=== PATIENT | female | born 1950 | race African-American/Black ===

== ENCOUNTER 2023-07-08 13:46 | Outpatient (AMB) | payer MEDICARE, SELFPAY ==
[2023-07-08 13:53] VITALS: BP 130/80; PULSE 68; O2SAT 97; BMI 34.6
--- NOTE | 2023-07-08 13:53 | A.OFFVIS_ITS ---
Intake Vital Signs 07/08/23 13:53 Height 5 ft 4 in Weight 201 lb 11.567 oz BMI 34.6 BP 130/80 Blood Pressure Location Lt brachial Position Sitting Pulse 68 Pulse Source Pulse Oximeter Pulse Oximetry (%) 97 Oxygen Delivery Method Room Air Intake Visit Reasons: Cough Intake Note: pt is here as a new patient for a erin cough, little better past few weeks, but it is still there and is dry. 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 HER CHIEF COMPLAINT IS COUGH SINCE JANUARY 2023. SHE DOES NOT KNOW EXACTLY WHAT MAY HAVE STARTED HER COUGH. SHE DENIES HAVING HAD ANY ACUTE RESPIRATORY INFECTION BEFORE THE ONSET OF HER COUGH. SHE DOES HAVE SYMPTOMS OF GERD ,OFF AND ON AND IS BEING TREATED WITH SOME PILL ONCE A DAY ( OF WHICH SHE DID NOT KNOW THE NAME ) SHE STILL HAS GERD SYMPTOMS ONCE IN A WHILE. SHE HAS MILD ALLERGIC RHINITIS, AROUND THE YEAR BUT FLARES UP MOSTLY IN SPRING SEASON. SHE USES FLONASE NASAL SPRAY NEEDED, AND OTC ANTIHISTAMINIC AGENTS ONLY P.R.N.. THE ONLY CHANGE IN THE HOUSE ENVIRONMENT HAS BEEN A NEW FURNACE INSTALLED IN THE LAST FALL ( OIL BASED) SHE DOES HAVE HIS CENTRAL HUMIDIFIER BUT DID NOT USE DURING THE WINTER. SHE HAS A DEHUMIDIFIER , BUT USES DURING SUMMER. SHE DOES NOT HAVE PAST HISTORY OF BRONCHIAL ASTHMA OR COPD. SHE HAS NOT BEEN A SMOKER HOWEVER HER AND HER CHILDREN HAVE BEEN SMOKING . SHE WAS PRESCRIBED SYMBICORT INHALER BY HER PCP, WHICH SHE USED WITHOUT ANY BENEFIT. NOW FOR THE PAST FEW WEEKS HER COUGH IS SUBSIDING SLOWLY, BUT SHE STILL WAKES SOMETIMES DURING THE NIGHT WITH COUGH. SHE TELLS ME THAT SHE HAD A CHEST X-RAY THROUGH [employer] [facility] , AND WAS TOLD THAT THE CHEST X-RAY WAS NORMAL [facility] Medical History (Updated 07/08/23 @ 15:35 by Rayshawn Gregorio MD) Cough Social History Patient Tobacco Use Status: Never used Tobacco Review of Systems Const All systems reviewed & are unremarkable except as noted in HPI and below Eyes Reports no additional complaints ENT Reports nasal congestion (MILD INTERMITTENT) Card Denies irregular heart rhythm and Denies leg edema Resp Reports as per HPI GI Reports heartburn (INTERMITTENT) Reports no additional complaints Musc Reports no additional complaints Skin/Breast Reports system reviewed and no additional complaints, except as documented Neuro Reports no additional complaints Psych Reports no additional complaints Endo Reports no additional complaints Geovani/Lymph Reports no additional complaints Physical Exam Vital Signs: Last Vital Signs Pulse 68 07/08/23 13:53 BP 130/80 07/08/23 13:53 Pulse Ox 97 07/08/23 13:53 Oxygen Delivery Method Room Air 07/08/23 13:53 BMI result Body Mass Index 34.6 Const General: healthy appearing, comfortable, no acute distress, alert and awake Orientation/consciousness: patient oriented x3 HEENT Head: Yes normal to inspection General nose exam: No nasal polyps present and No nasal discharge present Face and sinus: Yes sinuses nontender Mouth: oropharynx normal Throat: Yes posterior oropharynx normal Eyes General: appearance normal, both eyes and all related structures Neck Neck: Yes normal visual inspection, Yes no lymphadenopathy, Yes trachea midline and Yes no JVD Thyroid: Thyroid normal Chest Chest palpation & inspection: normal inspection of the chest, normal palpation of entire chest wall and no tenderness Resp Effort & Inspection: normal respiratory effort Auscultation: clear to auscultation bilaterally, no crackles, no rhonchi and no wheezes Cardio Palpation: normal PMI Rate: regular rate Rhythm: regular rhythm Heart sounds: no gallops and no murmurs Peripheral pulses: Peripheral pulses 2+ throughout GI Palpation (GI): Soft to palpation, nontender, No hepatosplenomegaly present and no masses Auscultation: normal bowel sounds Back/Spine/Pelvis Thoracic/Lumbar Spine: thoracic and lumbar spine normal to inspection Skin General skin exam: no rashes or lesions noted Neuro General: patient oriented x3 and no focal motor deficits Cranial nerves: Yes CN's II-XII intact bilaterally Extrem General: Yes normal to inspection, Yes no clubbing, cyanosis or edema and Yes no calf tenderness Psych Appearance: grossly normal and well kempt Speech and movement: Normal speech and movement present Assessment & Plan Assessment & Plan (1) Cough: Comment: COUGH SINCE JANUARY 2023, ETIOLOGY NOT DETERMINED. MOST LIKELY DUE TO COMBINATION OF A FEW FACTORS INCLUDING : POST VIRAL INFECTION REACTIVE AIRWAYS COUGH ASTHMA VARIANT. SOME CONTRIBUTION BY GERD SYMPTOMS. DRY AIR DURING THE WINTER MONTHS AFTER THE NEW FURNACE INSTALLMENT. LOW-GRADE RHINITIS . Code(s): R05.9 - Cough, unspecified Plan: WE HAD A LONG DISCUSSION AND PATIENT EDUCATION, ABOUT POSSIBLE REASONS FOR HER COUGH, AND FOLLOWING ADVICE. 1- PULMONARY FUNCTION TEST TO BE DONE, TO RULE OUT ASTHMA OR COPD ( SHE HAS BEEN EXPOSED TO [employer]ONDH[employer] SMOKING FOR MANY YEARS ) 2- USE A VAPORIZER IN THE BEDROOM AT NIGHT DURING WINTER MONTHS. 3- OKAY TO CONTINUE USING FLONASE 2 SPRAY IN EACH NOSTRIL DAILY 4- KEEP GERD SYMPTOMS CONTROLLED. SHE MAY USE FAMOTIDINE 20 MG DAILY 5 AT THIS POINT THERE IS NO NEED TO USE ANY BRONCHODILATOR INHALER, AND WE WILL DISCUSS FURTHER AFTER THE PULMONARY FUNCTION TEST IS DONE Orders: Orders PFT pulmonary function test Today R05.9 - Cough, unspecified Coding Level of Care Code New Pt Level 4 (38272) Diagnoses Cough R05.9
== END 2023-07-08 14:48 | disposition home or self-care (01) ==
PROVIDERS: PCP Family Medicine; Referring Provider Family Medicine; Visit Provider Internal Medicine
DX: R05.9 Cough, unspecified (principal)
CPT/HCPCS: 99204

== ENCOUNTER → 2023-07-08 13:46 | Outpatient (BNVA) | payer MEDICARE, SELFPAY | PROVIDERS: PCP Family Medicine; Referring Provider Family Medicine; Visit Provider Internal Medicine | DX: R05.9 Cough, unspecified (principal) | CPT/HCPCS: 99202 ==

== ENCOUNTER 2023-07-23 12:38 | Outpatient (REF) | payer MEDICARE, SELFPAY ==
[2023-07-23 09:21] VITALS: PULSE 78; RESP 16; O2SAT 99
--- NOTE | 2023-07-23 14:32 | PFT_ITS ---
Flows: FEV1: 98 % of predicted at 2.13 L FVC: 99 % of predicted at 2.78 L FEV1/FVC: 77 % Bronchodilator response: Present in small to medium airways only Volumes: Total lung capacity: 78 % of predicted at 3.85 L Residual volume: 61 % of predicted at 1.20 L Slow vital capacity: 89 % of predicted at 2.65 L Expiratory reserve volume: 43 % of predicted at 0.31 L Diffusion capacity: Patient unable to perform diffusion capacity maneuver secondary to persistent cough. Impression: Mild restrictive ventilatory defect. Bronchodilator response present in small to medium airways only. Decreased expiratory reserve volume suggests extrathoracic restriction likely secondary to abdominal obesity. MTDD
== END 2023-07-23 12:39 | disposition home or self-care (01) ==
LOC: HO.RESP 12:38
PROVIDERS: PCP Family Medicine; Visit Provider Internal Medicine
DX: R05.9 Cough, unspecified (principal)
CPT/HCPCS: 94010; 94640; 94727; 94729

== ENCOUNTER → 2023-07-23 14:32 | Outpatient (BNV) | payer MEDICARE, SELFPAY | PROVIDERS: PCP Family Medicine; Visit Provider Internal Medicine Pulmonary Disease | DX: R05.9 Cough, unspecified (principal) | CPT/HCPCS: 94060; 94727; 94729 ==

== ENCOUNTER 2023-08-05 14:06 | Outpatient (AMB) | payer MEDICARE, SELFPAY ==
[2023-08-05 14:15] VITALS: BP 130/70; PULSE 65; O2SAT 97; BMI 34.5
--- NOTE | 2023-08-05 14:15 | MHC.OFFVIS ---
Vital Signs 08/05/23 14:15 Height 5 ft 4 in Weight 201 lb BMI 34.5 BP 130/70 Blood Pressure Location Lt brachial Position Sitting Pulse 65 Pulse Source Pulse Oximeter Pulse Oximetry (%) 97 Oxygen Delivery Method Room Air Intake Visit Reasons: Cough Intake Note: pt is here for follow up of pft and states she is still coughing at least once a day that will start and continue for a bit. 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 Her main problem is intermittent bouts of cough since about a year, without any special reason. She does have mild nasal allergy which flares up off and on. And she also has symptoms of GERD which are now under good control Denies any wheezing Denies any shortness of breath on walking . She is a nonsmoker. Today she claims that she is definitely better and the cough is much less than before. Is only once in a while that she will start having cough which lost for a few minutes. This coincides with decrease in the GERD symptoms . [facility] Medical History Cough Social History Patient Tobacco Use Status: Never used Tobacco Review of Systems Const All systems reviewed & are unremarkable except as noted in HPI and below Eyes Reports no additional complaints ENT Reports nasal congestion (MILD INTERMITTENT) Card Denies irregular heart rhythm and Denies leg edema Resp Reports as per HPI GI Reports heartburn (INTERMITTENT) Reports no additional complaints Musc Reports no additional complaints Skin/Breast Reports system reviewed and no additional complaints, except as documented Neuro Reports no additional complaints Psych Reports no additional complaints Endo Reports no additional complaints Geovani/Lymph Reports no additional complaints Physical Exam Vital Signs: Last Vital Signs Pulse 65 08/05/23 14:15 BP 130/70 08/05/23 14:15 Pulse Ox 97 08/05/23 14:15 Oxygen Delivery Method Room Air 08/05/23 14:15 BMI result Body Mass Index 34.5 Const General: healthy appearing, comfortable, no acute distress, alert and awake Orientation/consciousness: patient oriented x3 HEENT Head: Yes normal to inspection General nose exam: No nasal polyps present and No nasal discharge present Face and sinus: Yes sinuses nontender Mouth: oropharynx normal Throat: Yes posterior oropharynx normal Eyes General: appearance normal, both eyes and all related structures Neck Neck: Yes normal visual inspection, Yes no lymphadenopathy, Yes trachea midline and Yes no JVD Thyroid: Thyroid normal Chest Chest palpation & inspection: normal inspection of the chest, normal palpation of entire chest wall and no tenderness Resp Effort & Inspection: normal respiratory effort Auscultation: clear to auscultation bilaterally, no crackles, no rhonchi and no wheezes Cardio Palpation: normal PMI Rate: regular rate Rhythm: regular rhythm Heart sounds: no gallops and no murmurs Peripheral pulses: Peripheral pulses 2+ throughout GI Palpation (GI): Soft to palpation, nontender, No hepatosplenomegaly present and no masses Auscultation: normal bowel sounds Back/Spine/Pelvis Thoracic/Lumbar Spine: thoracic and lumbar spine normal to inspection Skin General skin exam: no rashes or lesions noted Neuro General: patient oriented x3 and no focal motor deficits Cranial nerves: Yes CN's II-XII intact bilaterally Extrem General: Yes normal to inspection, Yes no clubbing, cyanosis or edema and Yes no calf tenderness Psych Appearance: grossly normal and well kempt Speech and movement: Normal speech and movement present Results Reviewed Results Reviewed: PULMONARY FUNCTION TEST ON 07/23/2023. ALL FLOW VOLUMES ARE NORMAL. THERE IS NO RESPONSE TO BRONCHODILATORS. TLC 78% WHICH IS C/W MILD RESTRICTIVE PATTERN. PATIENT COULD NOT PERFORM THE TEST FOR DLCO. Assessment & Plan Assessment & Plan (1) Cough: Comment: HER COUGH WAS AGGRAVATED PROBABLY DUE TO A VIRAL INFECTION. COUGH WAS ALSO CONTRIBUTED BY LOW-GRADE GERD SYMPTOMS. NOW THAT SHE IS TAKING FAMOTIDINE 20 MG DAILY, THE GERD SYMPTOMS ARE MUCH DECREASED AND SO IS THE COUGH. SHE COULD ALSO HAVE AN ELEMENT OF NASAL ALLERGIES , WHICH IS UNDER CONTROL AT PRESENT Code(s): R05.9 - Cough, unspecified Category: Medical Plan: CONTINUE TO CONTROL GERD SYMPTOMS WITH FAMOTIDINE 20 MG ONCE A DAY, CAN INCREASE TO 40 MG A DAY IF SYMPTOMS GET ANY WORSE. CONTINUE TO USE FLONASE 1 OR 2 SPRAYS IN EACH NOSTRIL DAILY IF SHE ANY NASAL CONGESTION OR POSTNASAL DISCHARGE. I REVIEWED THE RESULTS OF PULMONARY FUNCTION TEST WITH THE PATIENT. I TOLD HER THAT THERE IS NO SIGN OF BRONCHIAL ASTHMA. AND SHE DOES NOT HAVE TO USE ANY BRONCHODILATOR INHALERS. Coding Level of Care Code Est Pt Level 3 (22243) Diagnoses Cough R05.9
== END 2023-08-05 14:45 | disposition home or self-care (01) ==
PROVIDERS: PCP Family Medicine; Visit Provider Internal Medicine
DX: R05.9 Cough, unspecified (principal)
CPT/HCPCS: 99213

== ENCOUNTER → 2023-08-05 14:06 | Outpatient (BNVA) | payer MEDICARE, SELFPAY | PROVIDERS: PCP Family Medicine; Visit Provider Internal Medicine | DX: R05.9 Cough, unspecified (principal) | CPT/HCPCS: 99212 ==